=== PATIENT | female | born 1970 | race Caucasian/White ===

== ENCOUNTER 2021-07-28 09:33 | Observation (INO) ==
[2021-07-28] MEDS ORDERED: *HR* OxyCODONE Immed Rel 5 MG TABLET PO ONE ×2 (10:22→12:23)
[2021-07-28] MEDS ORDERED: Isovue-370 500 ML BOTTLE IVP ONE (12:59)
[2021-07-28] MEDS ORDERED: *HR* FentaNYL (PF) 100 MCG/2 ML VIAL IVP PRN (13:01)
[2021-07-28 13:33] LABS: Basophils # 0.1 K/mcL (0.0-0.2); Basophils % 0.6 %; Eosinophils # 0.4 K/mcL (0.0-0.6); Eosinophils % 4.5 %; Hematocrit 47.6 % (35.3-44.9); Hemoglobin 15.3 g/dL (11.5-15.4); Lymphocytes # 1.5 K/mcL (0.6-4.6); Lymphocytes % 17.4 %; Mean Corpuscular HGB Conc 32.1 g/dL (31.6-35.5); Mean Corpuscular Volume 90.2 fL (83.0-100.0); Mean Platelet Volume 10.2 fL (9.4-12.4); Monocytes # 0.5 K/mcL (0.0-1.3); Monocytes % 5.2 %; Neutrophils # 6.3 K/mcL (1.6-8.9); Platelet Count 346 K/mcL (140-400); Red Blood Count 5.28 M/mcL (3.82-4.97); Red Cell Distribution Width 13.7 % (11.5-14.5); Segmented Neutrophils % 71.3 %; White Blood Count 8.9 K/mcL (4.3-11.1)
[2021-07-28 13:45] LABS: INR 1.1; Prothrombin Time 12.2 Seconds (9.4-12.1)
[2021-07-28 13:48] LABS: Activated Partial Thrombo Time 28.2 Seconds (26.0-36.0)
[2021-07-28 13:52] LABS: BUN/Creatinine Ratio 17 (6-26); Blood Urea Nitrogen 9 mg/dL (6-20); Calcium 9.8 mg/dL (8.6-10.3); Carbon Dioxide 28 mEq/L (23-29); Chloride 100 mEq/L (98-107); Glucose 118 mg/dL (70-105); Osmolality,Calculated 286 (280-300); Potassium 4.2 mEq/L (3.5-5.1); Sodium 138 mEq/L (136-145); eGFR For African Americans > 60 (> 60); eGFR For Non-African Americans > 60 (> 60)
[2021-07-28] MEDS ORDERED: *HR* FentaNYL (PF) 100 MCG/2 ML VIAL IVP ONE (14:17)
[2021-07-28] MEDS ORDERED: Vancomycin 1,500 MG/265 ML IV.SOLN IVPB ONE (15:39)
[2021-07-28] MEDS ORDERED: MetroNIDAZOLE 500 MG/100 ML 500 MG/100 ML BAG IVPB SCH (16:00)
[2021-07-28] MEDS ORDERED: Cefepime HCl 1,000 MG in Water for inj. (sterile) 10 ML IVP SCH (16:00)
[2021-07-28] MEDS ORDERED: Naloxone 0.4 MG/ML INJ IVP PRN (16:05)
[2021-07-28] MEDS ORDERED: Melatonin 3 MG TABLET PO PRN (16:10)
[2021-07-28] MEDS ORDERED: Ondansetron ODT 4 MG TAB.RAPDIS SL PRN (16:10)
[2021-07-28] MEDS ORDERED: Mag Hydrox/Al Hydrox/Simeth 30 ML UDC PO PRN (16:10)
[2021-07-28] MEDS ORDERED: Acetaminophen 325 MG TABLET PO PRN (16:10)
[2021-07-28] MEDS: *HR* HYDROmorphone 2 MG/ML SYRINGE IVP PRN ×3 (16:41→22:14)
[2021-07-28 17:10] LABS: C-Reactive Protein 31 mg/L (Less than 10)
[2021-07-28] MEDS: *HR* OxyCODONE Immed Rel 5 MG TABLET PO PRN (17:31)
[2021-07-28] MEDS ORDERED: D5% in Water 1,000 ML IVC PRN (17:43)
[2021-07-28] MEDS ORDERED: *HR* Dextrose 50 % in Water (Vial) 50 ML VIAL IVP PRN (17:43)
[2021-07-28] MEDS ORDERED: Dextrose Gel 15 GM/37.5 ML TUBE PO PRN ×2 (17:43)
[2021-07-28] MEDS: *HR* Heparin 5,000 UNIT/ML VIAL SQ SCH (19:05)
[2021-07-28] MEDS: *HR* HYDROcodone/Acet 5/325 mg TABLET PO PRN (21:14)
[2021-07-28] MEDS: Insulin LISPRO 300 UNITS/3 ML VIAL SUBQ SCH (22:00)
[2021-07-29] MEDS: *HR* OxyCODONE Immed Rel 5 MG TABLET PO PRN ×4 (00:18→21:32)
[2021-07-29] MEDS ORDERED: *HR* HYDROmorphone 2 MG/ML SYRINGE IVP ONE (01:10)
[2021-07-29] MEDS: *HR* HYDROmorphone 2 MG/ML SYRINGE IVP PRN ×3 (03:49→08:39)
[2021-07-29 05:11] LABS: Hematocrit 47.1 % (35.3-44.9); Hemoglobin 15.3 g/dL (11.5-15.4); Mean Corpuscular HGB Conc 32.5 g/dL (31.6-35.5); Mean Corpuscular Hemoglobin 29.7 pg (28.0-33.3); Mean Corpuscular Volume 91.5 fL (83.0-100.0); Mean Platelet Volume 10.1 fL (9.4-12.4); Platelet Count 358 K/mcL (140-400); Red Blood Count 5.15 M/mcL (3.82-4.97); Red Cell Distribution Width 13.8 % (11.5-14.5); White Blood Count 9.6 K/mcL (4.3-11.1)
[2021-07-29 05:28] LABS: BUN/Creatinine Ratio 24 (6-26); Blood Urea Nitrogen 14 mg/dL (6-20); Calcium 9.8 mg/dL (8.6-10.3); Carbon Dioxide 27 mEq/L (23-29); Chloride 99 mEq/L (98-107); Glucose 134 mg/dL (70-105); Osmolality,Calculated 286 (280-300); Potassium 3.7 mEq/L (3.5-5.1); Sodium 137 mEq/L (136-145); eGFR For African Americans > 60 (> 60); eGFR For Non-African Americans > 60 (> 60)
[2021-07-29] MEDS: *HR* Heparin 5,000 UNIT/ML VIAL SQ SCH ×2 (06:07→18:36)
[2021-07-29] MEDS: Insulin LISPRO 300 UNITS/3 ML VIAL SUBQ SCH ×4 (08:40→21:30)
[2021-07-29] MEDS: Gabapentin 400 MG CAPSULE PO SCH ×2 (10:32→20:01)
[2021-07-29] MEDS: diazePAM 5 MG TABLET PO PRN (15:21)
[2021-07-29] MEDS: *HR* HYDROmorphone (PF) 1 MG/ML SYRINGE IVP PRN ×3 (15:23→22:24)
[2021-07-29] MEDS ORDERED: Acetaminophen IV 1,000 MG/100 ML BAG IVPB ONE (23:30)
[2021-07-30] MEDS: *HR* HYDROmorphone (PF) 1 MG/ML SYRINGE IVP PRN ×3 (01:37→08:07)
[2021-07-30] MEDS: *HR* HYDROcodone/Acet 5/325 mg TABLET PO PRN (02:46)
[2021-07-30 04:47] VITALS: PULSE 110
[2021-07-30] MEDS: *HR* Heparin 5,000 UNIT/ML VIAL SQ SCH (05:05)
[2021-07-30 07:17] VITALS: BP 137/93; TEMP 98; O2SAT 95
[2021-07-30 07:46] LABS: Hematocrit 47.1 % (35.3-44.9); Hemoglobin 15.5 g/dL (11.5-15.4); Mean Corpuscular HGB Conc 32.9 g/dL (31.6-35.5); Mean Corpuscular Hemoglobin 29.3 pg (28.0-33.3); Mean Platelet Volume 10.1 fL (9.4-12.4); Platelet Count 344 K/mcL (140-400); Red Blood Count 5.29 M/mcL (3.82-4.97); Red Cell Distribution Width 13.8 % (11.5-14.5); White Blood Count 10.8 K/mcL (4.3-11.1)
[2021-07-30] MEDS: Insulin LISPRO 300 UNITS/3 ML VIAL SUBQ SCH (08:05)
[2021-07-30] MEDS: Gabapentin 400 MG CAPSULE PO SCH (08:07)
[2021-07-30] MEDS: diazePAM 5 MG TABLET PO PRN (08:07)
[2021-07-30 08:13] LABS: BUN/Creatinine Ratio 36 (6-26); Blood Urea Nitrogen 22 mg/dL (6-20); Carbon Dioxide 24 mEq/L (23-29); Chloride 98 mEq/L (98-107); Glucose 149 mg/dL (70-105); Osmolality,Calculated 284 (280-300); Potassium 3.5 mEq/L (3.5-5.1); Sodium 134 mEq/L (136-145); eGFR For African Americans > 60 (> 60); eGFR For Non-African Americans > 60 (> 60)
[2021-07-30] MEDS ORDERED: Acetaminophen IV 1,000 MG/100 ML BAG IVPB SCH (09:00)
== END 2021-07-30 10:39 | disposition home or self-care (01) ==
LOC: 3ANU 09:33 → EMEROOARM 09:33 → SUATTDRO 16:21 → 3ANU 17:14
PROVIDERS: ADMIT Family Medicine; ATTEND Family Medicine